=== PATIENT | male | born 1960 | race Caucasian/White ===

== ENCOUNTER 2024-07-10 01:20 | Inpatient (IN) ==
[2024-07-10 02:11] LABS: Basophils # (auto) 0.06 K/uL (0.00-0.20); Basophils % (auto) 0.7 %; Eosinophils # (auto) 0.47 K/uL (0.00-0.50); Eosinophils % (auto) 5.5 %; Hematocrit (blood only) 41.4 % (42.0-52.0); Hemoglobin 14.1 g/dl (14.0-18.0); Immature Granulocytes # (auto) 0.02 K/uL (0.01-0.20); Immature Granulocytes % (auto) 0.2 %; Lymphocytes # (auto) 0.99 K/uL (1.20-3.40); Lymphocytes % (auto) 11.6 %; Mean Corpuscular Hemoglobin 30.6 pg (25.0-34.0); Mean Corpuscular Hgb Conc 34.1 g/dL (32.0-36.0); Mean Corpuscular Volume 89.8 fL (80.0-100.0); Mean Platelet Volume 9.9 fL (9.4-12.4); Monocytes # (auto) 0.98 K/uL (0.11-0.59); Monocytes % (auto) 11.5 %; Neutrophils % (auto) 70.5 %; Platelet Count 227 K/uL (130-400); RDW Standard Deviation 42.6 fL (36.4-46.3); Red Blood Count 4.61 M/uL (4.70-6.10); White Blood Count 8.52 K/ul (4.8-10.8)
[2024-07-10 02:23] LABS: Albumin Globulin Ratio 1.3 (0.9-2); Albumin Level 4.3 gm/dl (3.4-5.0); Bilirubin,Total 0.7 mg/dl (0.2-1.0); Calcium 9.3 mg/dl (8.6-10.3); Est GFR (African American) 91.1 ml/min; Est GFR (Non-African American) 78.6 ml/min; Globulin 3.2 gm/dl (2.5-4.0); Potassium 4.5 mmol/L (3.5-5.1); Total Protein 7.5 gm/dl (6.0-8.3)
[2024-07-10] MEDS ORDERED: VANCOMYCIN CONSULT ACTIVE PRN (03:09)
[2024-07-10] MEDS: OPTIRAY 320 100ml IV ONE (03:39)
[2024-07-10] MEDS: VANCOMYCIN HCL 1,500 MG in SODIUM CHLORIDE 0.9% 500 ML IV ONE (03:44)
--- NOTE | 2024-07-10 03:56 | Emergency Department Note ---
ED Visit Note I was consulted by the Advanced Practice Provider. I personally made/approved the management plan and take responsibility for the patient management. I performed a substantive portion of the visit. This includes the aspects of: -History/Physical/Personally seeing the patient -MDM .
--- NOTE | 2024-07-10 04:04 | Emergency Department Note ---
History of Present Illness General Chief complaint: Eye Pain Stated complaint: R EYE SWOLLEN Time Seen by Provider: 07/10/24 02:54 History of Present Illness Maximum Pain Intensity: 1 This is a 64-year-old male presenting to the emergency department for evaluation of redness and swelling around his right eye. Patient was initially seen with this complaint yesterday at [facility] urgent care. He was diagnosed with preseptal cellulitis and started on Augmentin. Patient has been taking his medication as prescribed. Patient has not had fevers or chills. He is not diabetic. No difficulty or pain with movement of the eye, and he feels like his vision is preserved. He is concerned as the swelling around the eye is markedly worse than previous. He rates his discomfort a 1/10. Home Medications Medication Instructions Recorded Confirmed Type docusate sodium 100 mg capsule 100 mg PO DAILY PRN Constipation 07/10/24 07/10/24 History (Colace) furosemide 20 mg tablet 20 mg PO DAILY 07/10/24 07/10/24 History multivitamin 1 tab PO DAILY 07/10/24 07/10/24 History sodium chloride 1,000 mg soluble 2,000 mg PO DAILY 07/10/24 07/10/24 History tablet tramadol 50 mg tablet 50 mg PO Q6H PRN Pain, Moderate 07/10/24 07/10/24 History Allergies Allergy/AdvReac Type Severity Reaction Status Date / Time No Known Allergies Allergy Unknown Unverified 07/09/24 11:54 Past Med/Surg History Problem List (Updated 07/10/24 @ 08:02 by Melvin Faulkner PA-C) Preseptal cellulitis of right eye (Acute) Water retention Surgical History History of ankle surgery Family History Mother No problems noted. Father No problems noted. Social History Smoking Status: Never smoker Hx Alcohol Use: Yes Alcohol type: beer Hx Substance Use: No Preferred Language: Sami Communication Ability: Effective Adding Machine Mechanic Required: No Beliefs That Will Affect Care: None Current Living Situation: Alone Other Information That Helps Us Care for You: No Feels Safe at Home: Yes Safety Concerns: Feels Safe At This Time Assistive Devices: Glasses Review of Systems A total of 10 systems reviewed and were otherwise negative Physical Exam Vital Signs Vital Signs - 24 hr 07/10/24 01:29 07/10/24 01:48 07/10/24 02:30 Temperature 36.6 C Temperature Source Temporal Artery Scan Pulse Rate 76 Pulse Rate [Finger] 74 71 Pulse Rhythm [Finger] Regular Regular Pulse Strength [Finger] Normal Normal Respiratory Rate 18 17 17 Respiratory Effort / Characteristics Non-Labored Spontaneous Non-Labored Spontaneous Non-Labored Spontaneous Respiratory Depth Normal Normal Normal Respiratory Pattern Regular Regular Blood Pressure 152/87 H Blood Pressure [Right Arm] 137/88 129/81 Blood Pressure Mean 108 Blood Pressure Mean [Right Arm] 104 97 Blood Pressure Position Sitting Blood Pressure Position [Right Arm] Sitting Sitting Pulse Oximetry 95 98 99 Oxygen Delivery Method Room Air Room Air Room Air Sepsis Recent Fever Within 48 Hours No Sepsis New/Unexplained Change in Mental Status N/A Sepsis Action Taken by Nursing No Action Required 07/10/24 04:00 Temperature Temperature Source Pulse Rate Pulse Rate [Finger] 75 Pulse Rhythm [Finger] Regular Pulse Strength [Finger] Normal Respiratory Rate 18 Respiratory Effort / Characteristics Non-Labored Spontaneous Respiratory Depth Normal Respiratory Pattern Regular Blood Pressure Blood Pressure [Right Arm] 146/85 H Blood Pressure Mean Blood Pressure Mean [Right Arm] 105 Blood Pressure Position Blood Pressure Position [Right Arm] Pulse Oximetry 95 Oxygen Delivery Method Room Air Sepsis Recent Fever Within 48 Hours Sepsis New/Unexplained Change in Mental Status Sepsis Action Taken by Nursing VITALS: Vitals are noted on the nurse's note and reviewed by myself. Vital signs stable. GENERAL: Well-developed, well-nourished, white male, who is in no acute distress and resting comfortably. Patient is cooperative with the examination. HEAD: Normocephalic atraumatic. EARS: External ear normal. External auditory canals clear, tympanic membranes pearly luev[place] without erythema or effusion bilaterally. EYES: Large amount of right periorbital edema noted. The visual acuity IP seems preserved. No difficulty with EOM. No obvious conjunctivitis. NOSE: Patent, turbinates without inflammation or discharge. MOUTH: Mucous membranes moist. Tonsils are not enlarged. Pharynx without erythema, blood, or exudate. Uvula midline. Airway patent. NECK: Supple without nuchal rigidity. No lymphadenopathy. No thyromegaly. Cervical spine is nontender. HEART: Regular rate and rhythm without murmurs gallops or rubs. LUNGS: Clear to auscultation bilaterally without wheezes, rales or rhonchi. No retractions or accessory muscle use. Course Administered Medications Discontinued Medications Vancomycin HCl 1,500 mg/ (Sodium Chloride) 530 mls @ 200 mls/hr IV NOW ONE Stop: 07/10/24 05:47 Last Infusion: 07/10/24 07:43 Dose: Infused Documented By: Admin: 07/10/24 03:44 Dose: 200 mls/hr Documented By: DAVID Ioversol (Optiray 320 100ml) 93 ml IV ONCE ONE Stop: 07/10/24 03:40 Last Admin: 07/10/24 03:39 Dose: 93 ml Documented By: YASMEEN Medical Decision Making Differential Diagnosis Differential diagnosis includes: Etiologies such as cellulitis, abscess, osteomyelitis, MRSA infection, DVT, necrotizing fasciitis, dermatitis, drug eruption, as well as others were entertained Laboratory Data 07/10/24 01:45 07/10/24 01:45 Lab Results 07/10/24 Range/Units 01:45 WBC 8.52 (4.8-10.8) K/ul RBC 4.61 L (4.70-6.10) M/uL Hgb 14.1 (14.0-18.0) g/dl Hct 41.4 L (42.0-52.0) % MCV 89.8 (80.0-100.0) fL MCH 30.6 (25.0-34.0) pg MCHC 34.1 (32.0-36.0) g/dL RDW Std Deviation 42.6 (36.4-46.3) fL RDW Coeff of Zina 13.0 (11.5-14.5) % Plt Count 227 (130-400) K/uL MPV 9.9 (9.4-12.4) fL Immature Gran % (Auto) 0.2 % Neut % (Auto) 70.5 % Lymph % (Auto) 11.6 % [place] % (Auto) 11.5 % Eos % (Auto) 5.5 % Baso % (Auto) 0.7 % Neut # (Auto) 6.00 (1.40-6.50) K/uL Lymph # (Auto) 0.99 L (1.20-3.40) K/uL [place] # (Auto) 0.98 H (0.11-0.59) K/uL Eos # (Auto) 0.47 (0.00-0.50) K/uL Baso # (Auto) 0.06 (0.00-0.20) K/uL Immature Gran # (Auto) 0.02 (0.01-0.20) K/uL Sodium 131 L (136-145) mmol/L Potassium 4.5 (3.5-5.1) mmol/L Chloride 99 (98-107) mmol/L Carbon Dioxide 24 (21-32) mmol/L Anion Gap 8 (3-11) BUN 19 (6-23) mg/dl Creatinine 1.00 (0.6-1.4) mg/dl Est Cr Clr Drug Dosing 84.0 ml/min Est GFR ( Amer) 91.1 ml/min Est GFR (Non-Af Amer) 78.6 ml/min BUN/Creatinine Ratio 19.0 (10-20) Glucose 96 (70-99(Fasting)) mg/dl Calcium 9.3 (8.6-10.3) mg/dl Total Bilirubin 0.7 (0.2-1.0) mg/dl AST 20 (13-39) U/L ALT 20 (7-52) U/L Alkaline Phosphatase 87 (34-104) U/L Total Protein 7.5 (6.0-8.3) gm/dl Albumin 4.3 (3.4-5.0) gm/dl Globulin 3.2 (2.5-4.0) gm/dl Albumin/Globulin Ratio 1.3 (0.9-2) Imaging Data Radiologist's Impression: Face CT 07/10/24 03:04 Exam(s): CT FACIAL With Contrast IV Amt: 93 cc's optiray 320 EXAM: CT Head and Maxillofacial With Intravenous Contrast CLINICAL HISTORY: Reason for exam: right periorbital cellulits. TECHNIQUE: Axial computed tomography images of the head/brain and face with intravenous contrast. CTDI is 7.19 mGy and DLP is 138.98 mGy-cm. Automated exposure control was utilized for the study. A dose lowering technique was utilized adhering to the principles of ALARA. CONTRAST: Patient received 93 cc's optiray 320 of IV contrast COMPARISON: No relevant prior studies available. FINDINGS: Brain: Unremarkable. No hemorrhage. No edema. Normal enhancement. Ventricles: Unremarkable. No ventriculomegaly. Bones/joints: No acute fracture. Remote left lamina papyracea fracture deformity. Soft tissues: There is moderate soft tissue swelling around the right orbit without evidence of abscess or drainable fluid collection. Prominent cervical lymph nodes. Sinuses: Unremarkable as visualized. No acute sinusitis. Mastoid air cells: Unremarkable as visualized. No mastoid effusion. Orbits: Unremarkable as visualized. IMPRESSION: Moderate soft tissue swelling around the preseptal soft tissues of the right orbit without evidence of abscess or drainable fluid collection. Electronically signed by: Danielle Morin MD 07/10/24 04:35 AM MDM Narrative Physical exam and history were performed. Nursing notes, EMR, and Medication List were personally reviewed. No social concerns were identified as barriers to patients care. Patient appears to have cellulitis around the right eye. This is quite extensive on physical examination. The globe appears intact without proptosis. IV access was established and labs were obtained. Patient was sent to CT scan for imaging. He was given IV vancomycin. Patient's blood work is as above and was reviewed. He does not have a significantly elevated white blood cell count, gross anemia, bandemia, or significant electrolyte imbalance. Transaminases are not diagnostic. CT scan was reviewed by myself and radiology, and while it does show the cellulitis, it does not show abscess or significant tracking posteriorly. Overall the patient does not appear well for discharge, and escalation of care is felt to be necessary. He is failing outpatient Augmentin and will likely require IV treatment. Case was discussed with the on-call [facility] hospitalist, who agreed to evaluate the patient here in the ER. Please see their dictation for further patient course, plan, and disposition. The chart was completed utilizing linkedFA Speech Voice Recognition Software. Grammatical errors, random word insertions, pronoun errors, and incomplete sentences are an occasional consequence of this system due to software limitations, ambient noise, and hardware issues. Any formal questions or concerns about the content, text, or information contained within the body of this dictation should be directly addressed to the provider for clarification. Impression & Plan Preseptal cellulitis of right eye Discharge Plan Visit Data Chief Complaint: Eye Pain Stated Complaint: R EYE SWOLLEN ED Provider: Emily Davis ED Midlevel Provider: Melvin Faulkner Discharge Problem: Preseptal cellulitis of right eye Patient Disposition: Admitted As Inpatient Discharge Instructions Interventions: ED Discharge Assessment Last Done: 07/10/24 06:16
--- NOTE | 2024-07-10 04:36 | CT Scan Report ---
Exam(s): CT FACIAL With Contrast IV Amt: 93 cc's optiray 320 EXAM: CT Head and Maxillofacial With Intravenous Contrast CLINICAL HISTORY: Reason for exam: right periorbital cellulits. TECHNIQUE: Axial computed tomography images of the head/brain and face with intravenous contrast. CTDI is 7.19 mGy and DLP is 138.98 mGy-cm. Automated exposure control was utilized for the study. A dose lowering technique was utilized adhering to the principles of ALARA. CONTRAST: Patient received 93 cc's optiray 320 of IV contrast COMPARISON: No relevant prior studies available. FINDINGS: Brain: Unremarkable. No hemorrhage. No edema. Normal enhancement. Ventricles: Unremarkable. No ventriculomegaly. Bones/joints: No acute fracture. Remote left lamina papyracea fracture deformity. Soft tissues: There is moderate soft tissue swelling around the right orbit without evidence of abscess or drainable fluid collection. Prominent cervical lymph nodes. Sinuses: Unremarkable as visualized. No acute sinusitis. Mastoid air cells: Unremarkable as visualized. No mastoid effusion. Orbits: Unremarkable as visualized. IMPRESSION: Moderate soft tissue swelling around the preseptal soft tissues of the right orbit without evidence of abscess or drainable fluid collection. Electronically signed by: Danielle Morin MD 07/10/24 04:35 AM
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
[2024-07-10] MEDS ORDERED: DOCUSATE SODIUM 100 MG CAP PO PRN (06:44)
[2024-07-10] MEDS ORDERED: NITROGLYCERIN SL 0.4 MG/TAB TAB SL PRN (06:44)
[2024-07-10] MEDS ORDERED: POLYETHYLENE (MIRALAX) 17 GM PACK PO PRN (06:44)
[2024-07-10] MEDS: cefTRIAXone SODIUM 2,000 MG/50 ML BAG IV SCH (09:06)
[2024-07-10] MEDS: traMADol HCL 50 MG TABLET PO PRN (09:06)
[2024-07-10] MEDS: SODIUM CHLORIDE 1 GM TABLET PO SCH (09:07)
[2024-07-10] MEDS: ENOXAPARIN INJ 40 MG/0.4 ML SYR SQ SCH (09:07)
[2024-07-10] MEDS: ACETAMINOPHEN 325 MG TAB PO PRN (09:07)
[2024-07-10] MEDS: FUROSEMIDE 20 MG TAB PO SCH (09:07)
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
[2024-07-10] MEDS: MULTIVITAMIN TAB PO SCH (10:15)
[2024-07-10] MEDS: AMPICILLIN/SULBACTAM SOD 3,000 MG/100 ML BAG IV SCH (10:15)
--- NOTE | 2024-07-10 12:21 | Ophthalmology Consultation ---
Date of Consultation July 10, 2024 Assessment & Plan (1) Preseptal cellulitis of right eye: The patient has a preseptal cellulitis of the right eye with no orbital involvement and no significant globe pathology. I would recommend continuing IV antibiotics with possible transition to oral antibiotics on discharge. Since this is primarily a skin infection follow with ophthalmology only if develops ocular symptoms (decreased vision, double vision, eye pain, etc.) History of Present Illness Reason for Consultation: right eye preseptal cellulitis Attending Physician: Shira Nguyen MD History of Present Illness The patient is a 64 year old gentlemen who noticed swelling of the right lower lid a few days ago. He was started on oral Augmentin but his symptoms worsened prompted a visit to the ER. There a diagnosis of preseptal cellulitis of the right eye was made. CT of the orbits did not show any postseptal invovlement. As he was not responding to oral antibiotics he was admitted for IV treatment. He is now receiving amp/sulbactam and vancomycin IV. He reports that today the swelling is much improved. He denies any pain, double vision, or blurry vision at this time. He does report having an episode that was similar but much less severe of right lower lid redness and swelling a year or two ago. However, he believes that was treated with oral steroids and the symptoms resolved. He denies any other prior ocular disease or injuries. Allergies Allergy/AdvReac Type Severity Reaction Status Date / Time No Known Allergies Allergy Unknown Unverified 07/09/24 11:54 Home Medications Medication Instructions Recorded Confirmed Type docusate sodium 100 mg capsule 100 mg PO DAILY PRN Constipation 07/10/24 07/10/24 History (Colace) furosemide 20 mg tablet 20 mg PO DAILY 07/10/24 07/10/24 History multivitamin 1 tab PO DAILY 07/10/24 07/10/24 History sodium chloride 1,000 mg soluble 2,000 mg PO DAILY 07/10/24 07/10/24 History tablet tramadol 50 mg tablet 50 mg PO Q6H PRN Pain, Moderate 07/10/24 07/10/24 History Patient History Surgical History History of ankle surgery Family History Mother No problems noted. Father No problems noted. Social History Smoking Status: Never smoker Hx Alcohol Use: Yes Alcohol type: beer Hx Substance Use: No Preferred Language: [place] Communication Ability: Effective Flatwork Supervisor Required: No Beliefs That Will Affect Care: None Current Living Situation: Alone Other Information That Helps Us Care for You: No Feels Safe at Home: Yes Safety Concerns: Feels Safe At This Time Assistive Devices: Glasses Physical Exam Eyes: There is diffuse edema of the right upper lid, lower lid and cheek with erythema of these same areas. Vision on a near card with correction is 20/30 OU. Pen light exam shows a normal globe bilaterally with the exception of some mild injection of the conjunctiva of the right eye. Cornea, iris, anterior chamber, and lens were normal OU. Undilated fundus exam on the right was normal with normal optic nerve, macula, retinal vessels, and retina. Pupils were round and reacted normally to light. Extra-ocular motility was normal OU. There was no diplopia in any gaze position. There was no proptosis. Results & Data Vital Signs (Past 12 Hours) Vital Signs Temp Pulse Pulse Resp BP BP Pulse Ox 07/10/24 11:26 36.5 C 62 20 142/84 H 94 07/10/24 06:45 36.4 C L 66 18 163/83 H 95 07/10/24 06:00 75 18 152/92 H 100 07/10/24 04:00 75 18 146/85 H 95 07/10/24 02:30 71 17 129/81 99 07/10/24 01:48 74 17 137/88 98 07/10/24 01:29 36.6 C 76 18 152/87 H 95 O2 Del Method 07/10/24 11:26 Room Air 07/10/24 06:45 Room Air 07/10/24 06:00 Room Air 07/10/24 04:00 Room Air 07/10/24 02:30 Room Air 07/10/24 01:48 Room Air 07/10/24 01:29 Room Air
--- NOTE | 2024-07-10 13:41 | Communication Note ---
Date of Service: July 10, 2024 Evaluated patient on floor, sitting in bed, comfortable Patient denies fevers or chills, no ocular pain Exam notable for erythema/swelling of tissue around right eye, vision in tact, #Preseptal cellulitis no neuro deficits, headache or vision changes MRSA nare ordered Continue IV Vanc/Unasyn Ophthalmology: no ocular involvement Rest of plan per HP
[2024-07-10] MEDS: VANCOMYCIN HCL 1,250 MG in SODIUM CHLORIDE 0.9% 250 ML IV SCH (18:26)
[2024-07-11 05:53] LABS: Basophils # (auto) 0.04 K/uL (0.00-0.20); Basophils % (auto) 0.5 %; Eosinophils # (auto) 0.66 K/uL (0.00-0.50); Eosinophils % (auto) 8.6 %; Hematocrit (blood only) 39.1 % (42.0-52.0); Hemoglobin 13.3 g/dl (14.0-18.0); Immature Granulocytes # (auto) 0.02 K/uL (0.01-0.20); Immature Granulocytes % (auto) 0.3 %; Lymphocytes # (auto) 1.38 K/uL (1.20-3.40); Lymphocytes % (auto) 18.1 %; Mean Corpuscular Hemoglobin 30.6 pg (25.0-34.0); Mean Corpuscular Volume 90.1 fL (80.0-100.0); Mean Platelet Volume 9.9 fL (9.4-12.4); Monocytes # (auto) 0.72 K/uL (0.11-0.59); Monocytes % (auto) 9.4 %; Neutrophils # (auto) 4.82 K/uL (1.40-6.50); Neutrophils % (auto) 63.1 %; Platelet Count 212 K/uL (130-400); RDW Coefficient of Variation 12.7 % (11.5-14.5); RDW Standard Deviation 42.4 fL (36.4-46.3); Red Blood Count 4.34 M/uL (4.70-6.10); White Blood Count 7.64 K/ul (4.8-10.8)
[2024-07-11 06:36] LABS: Potassium 4.6 mmol/L (3.5-5.1)
[2024-07-11 06:43] LABS: BUN Creatinine Ratio 13.3 (10-20); Creatinine Clr Calc Pharmacy 95.4 ml/min; Est GFR (African American) 93.4 ml/min; Est GFR (Non-African American) 80.6 ml/min
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
[2024-07-12] MEDS: VANCOMYCIN LEVEL ONE (05:36)
[2024-07-12 06:13] LABS: Creatinine Clr Calc Pharmacy 89.9 ml/min; Est GFR (African American) 86.9 ml/min
[2024-07-12 07:56] LABS: Calcium 9.2 mg/dl (8.6-10.3); Potassium 4.3 mmol/L (3.5-5.1)
[2024-07-12 08:02] LABS: BUN Creatinine Ratio 14.4 (10-20)
[2024-07-12 08:18] VITALS: BP 154/91; PULSE 73; RESP 20; TEMP 97.7; O2SAT 91
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
== END 2024-07-12 11:29 | disposition home or self-care (01) | DRG 603 ==
LOC: ED 01:20 → 2N 05:24 → SUATTDRO 05:24 → 2N 06:16